=== PATIENT | female | born 1985 | race Caucasian/White ===

== ENCOUNTER 2022-03-23 20:00 | Inpatient (IN) | payer BC ==
[~2022-03-23 20:00] MED LIST: Oxytocin/Normal Saline 30 UNIT/500 ML BAG IV ONE
[2022-03-23] MEDS: Lactated Ringers 1,000 ML IV SCH ×3 (20:20→23:01)
[2022-03-23] MEDS ORDERED: Misoprostol 400 MCG (4 X 100 MCG TAB) RECTAL PRN (21:03)
[2022-03-23] MEDS ORDERED: Ondansetron 4 MG/2 ML SDV IVPUSH PRN ×2 (21:03→23:30)
[2022-03-23] MEDS ORDERED: Sodium Chloride 0.9% 10 ML Syringe FLUSH PRN (21:03)
[2022-03-23] MEDS ORDERED: Tranexamic Acid 1,000 MG in Sodium Chloride 0.9% 100 ML IV PRN (21:03)
[2022-03-23] MEDS ORDERED: Carboprost Tromethamine 250 MCG/1 ML Amp IM PRN (21:03)
[2022-03-23] MEDS ORDERED: Lidocaine 1% 30 ML SDV INJECT PRN (21:03)
[2022-03-23] MEDS ORDERED: Methylergonovine 0.2 MG/1 ML Amp IM PRN (21:03)
[2022-03-23] MEDS ORDERED: Acetaminophen 325 MG Tab PO PRN (21:03)
[2022-03-23] MEDS ORDERED: Lactated Ringers 1,000 ML IV ONE (21:03)
[2022-03-23] MEDS ORDERED: Oxytocin/Normal Saline 30 UNIT/500 ML BAG IV SCH (21:15)
[2022-03-23 21:51] LABS: ESTIMATED GFR 119 mL/min (>=60)
[2022-03-23] MEDS ORDERED: Morphine PF 1 MG/ML Amp ITHECAL ONE (22:48)
[2022-03-23] MEDS ORDERED: Ondansetron 4 MG/2 ML SDV IV ONE (22:48)
[2022-03-23] MEDS ORDERED: Sodium Chloride 0.9% 20 ML SDV ONE (22:48)
[2022-03-23] MEDS ORDERED: EPINEPHrine 1 MG/ML SDV ONE ×2 (22:48)
[2022-03-23] MEDS ORDERED: Dexmedetomidine 200 MCG/2 ML SDV ONE (22:48)
[2022-03-23] MEDS ORDERED: Morphine PF 1 MG/ML Amp ONE (22:48)
[2022-03-23] MEDS ORDERED: Nalbuphine 20 MG/1 ML Amp IVPUSH PRN (23:30)
[2022-03-23] MEDS ORDERED: diphenhydrAMINE 50 MG/ML SDV IV PRN (23:30)
[2022-03-23] MEDS ORDERED: Famotidine 20 MG/2 ML SDV IVPUSH PRN (23:30)
[2022-03-23] MEDS ORDERED: Lactated Ringers 500 ML IV SCH ×2 (23:30)
[2022-03-23] MEDS ORDERED: ePHEDrine 50 MG/ML SDV IVPUSH PRN (23:30)
[2022-03-23] MEDS ORDERED: Naloxone 2 MG/2 ML Syringe IVPUSH PRN (23:30)
[2022-03-23] MEDS ORDERED: Promethazine 25 MG/ML SDV IM PRN (23:30)
[2022-03-24] MEDS ORDERED: Oxytocin/Normal Saline 30 UNIT/500 ML BAG IV SCH (01:40)
[2022-03-24] MEDS ORDERED: Oxytocin/Normal Saline 60 UNIT/1,000 ML BAG ONE (03:08)
[2022-03-24] MEDS ORDERED: Vancomycin 1 GM SDV ONE (03:09)
[2022-03-24] MEDS ORDERED: Citric Acid/Sodium Citrate Solution 30 ML Cup PO ONE (03:23)
[2022-03-24] MEDS ORDERED: ceFAZolin 2 GM in Premix Bag 1 BAG IV ONE (03:23)
[2022-03-24] MEDS ORDERED: Lactated Ringers 1,000 ML IV SCH (03:30)
[2022-03-24] MEDS ORDERED: Ketorolac 30 MG/ML SDV IVPUSH SCH (03:30)
[2022-03-24] MEDS ORDERED: Ondansetron 4 MG/2 ML SDV ONE (05:28)
[2022-03-24] MEDS ORDERED: EPINEPHrine 1 MG/ML SDV ONE (05:30)
[2022-03-24] MEDS ORDERED: Carboprost Tromethamine 250 MCG/1 ML Amp ONE (05:30)
[2022-03-24] MEDS ORDERED: Neostigmine Methylsulfate 10 MG/10 ML MDV IV ONE (05:30)
[2022-03-24] MEDS ORDERED: Sodium Chloride 0.9% 10 ML Syringe IV ONE (05:30)
[2022-03-24] MEDS ORDERED: Lactated Ringers 1,000 ML IV ONE (05:30)
[2022-03-24] MEDS ORDERED: Morphine PF 1 MG/ML Amp ITHECAL ONE (05:30)
[2022-03-24] MEDS ORDERED: fentaNYL 100 MCG/2 ML SDV ITHECAL ONE (05:30)
[2022-03-24] MEDS ORDERED: Tranexamic Acid 1,000 MG in Sodium Chloride 0.9% 100 ML IV ONE (05:30)
[2022-03-24] MEDS ORDERED: Methylergonovine 0.2 MG/1 ML Amp ONE (05:30)
[2022-03-24] MEDS ORDERED: Methylergonovine 0.2 MG/1 ML Amp IV ONE (05:30)
[2022-03-24] MEDS ORDERED: Carboprost Tromethamine 250 MCG/1 ML Amp IM ONE (05:30)
[2022-03-24] MEDS ORDERED: ePHEDrine 50 MG/ML SDV IV ONE (05:30)
[2022-03-24] MEDS ORDERED: Ondansetron 4 MG/2 ML SDV IV ONE (05:30)
[2022-03-24] MEDS ORDERED: Dexamethasone 4 MG/ML SDV IV ONE (05:30)
[2022-03-24] MEDS ORDERED: Dexmedetomidine 200 MCG/2 ML SDV IV ONE (05:30)
[2022-03-24] MEDS ORDERED: HYDROmorphone 1 MG/ML Syringe IVPUSH PRN (05:47)
[2022-03-24] MEDS: Simethicone 80 MG Tab.Chew PO SCH ×4 (10:25→21:23)
[2022-03-24] MEDS: Acetaminophen/oxyCODONE 325-5 MG Tab PO PRN ×4 (10:26→23:26)
[2022-03-24] MEDS: Docusate Sodium 100 MG Cap PO PRN ×2 (10:26→21:23)
[2022-03-24] MEDS: Prenatal Multivitamin with Calcium/Folic Acid/Iron Tab PO SCH (10:29)
[2022-03-24] MEDS: Lactated Ringers 1,000 ML IV SCH (12:04)
[2022-03-25] MEDS: Acetaminophen/oxyCODONE 325-5 MG Tab PO PRN ×5 (03:31→21:28)
[2022-03-25] MEDS: Simethicone 80 MG Tab.Chew PO SCH ×4 (08:38→21:29)
[2022-03-25] MEDS: Docusate Sodium 100 MG Cap PO PRN ×2 (08:38→21:28)
[2022-03-25] MEDS: Ibuprofen 800 MG Tab PO PRN ×2 (08:38→16:03)
[2022-03-25] MEDS: Prenatal Multivitamin with Calcium/Folic Acid/Iron Tab PO SCH (11:11)
[2022-03-26] MEDS: Ibuprofen 800 MG Tab PO PRN ×2 (01:03→08:11)
[2022-03-26] MEDS: Acetaminophen/oxyCODONE 325-5 MG Tab PO PRN ×3 (04:07→11:32)
[2022-03-26] MEDS: Simethicone 80 MG Tab.Chew PO SCH ×2 (08:10→13:30)
[2022-03-26] MEDS: Prenatal Multivitamin with Calcium/Folic Acid/Iron Tab PO SCH (08:10)
[2022-03-26] MEDS: Docusate Sodium 100 MG Cap PO PRN (08:10)
== END 2022-03-26 13:00 | disposition home or self-care (01) | DRG 540 ==
LOC: DL.OBCHECK 20:00 → DL.OB 21:25 → OBSVTOIN 03-24 04:02
PROVIDERS: ADMIT Family Medicine; ATTEND Family Medicine
PROC: 10D00Z1 Extraction of Products of Conception, Low, Open Approach (ICD-10-PCS; principal; 2022-03-24)
PROC: 10907ZC Drainage of Amniotic Fluid, Therapeutic from Products of Conception, Via Natural or Artificial Opening (ICD-10-PCS; 2022-03-24)
DX: O48.0 Post-term pregnancy (principal); Z3A.40 40 weeks gestation of pregnancy; Z37.0 Single live birth; O99.284 Endocrine, nutritional and metabolic diseases complicating childbirth; E03.9 Hypothyroidism, unspecified; O13.4 Gestational [pregnancy-induced] hypertension without significant proteinuria, complicating childbirth; O75.89 Other specified complications of labor and delivery; O64.0XX0 Obstructed labor due to incomplete rotation of fetal head, not applicable or unspecified; Z20.822 Contact with and (suspected) exposure to COVID-19
CPT/HCPCS: 01961; 36410; 36415; 51701; 59409; 81003; 82565; 82570; 83615; 84156; 84450; 84460; 84520; 84550; 85027; 94010; A9270-GY; J0171; J0690; J1100; J2210; J2274; J2405; J2590; J2710; J3010; J3490; J7120; U0002